=== PATIENT | male | born 1985 | race Caucasian/White ===

== ENCOUNTER 2024-09-20 19:01 | Emergency (ER) | payer BC, SELFPAY ==
[2024-09-20 19:08] VITALS: BP 125/70; PULSE 77; RESP 20; TEMP 37.3; O2SAT 100
--- NOTE | 2024-09-20 19:44 | ED_ITS ---
HPI - Dental/Oral General Chief complaint: Dental/Oral Stated complaint: tooth and jaw pain Time Seen by Provider: 09/20/24 19:44 Source: patient, RN notes reviewed and old records reviewed Mode of arrival: ambulatory Limitations: no limitations History of Present Illness HPI Narrative: 39 year old male preents to express care with complaints of dental pain to left upper most posterior molar which had been doing better after taking antibiotic and steroid from dentist he was prescribed 2 weeks ago. Patient reports that pain is radiating into his left ear and has been taking Ibuprofen every 6 hocus for his discomfort. 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 States pain started again 2 days ago and also noted some left jaw swelling today. No trismus noted. MD Complaint: tooth pain Location: Tooth # (15) Onset (ago): day(s) (2) Severity: moderate Treatment prior to arrival: oral analgesic and other (recently completed antibiotic and steroid) Related Data Allergies Allergy/AdvReac Type Severity Reaction Status Date / Time No Known Allergies Allergy Verified 09/20/24 19:07 Review of Systems Review of Systems: CONSTITUTIONAL: Denies fever, chills, or sweats. ENT: Denies rhinorrhea, congestion, sore throat, or otalgia. Reports dental pain #15 tooth with some radiation to left ear and jaw welling CARDIOVASCULAR: Denies chest pain, palpitations, or edema. RESPIRATORY: Denies cough or dyspnea. SKIN: Denies rash or itching. MUSCULOSKELETAL: Denies myalgia. NEUROLOGIC: Denies headache All systems reviewed & are unremarkable except as noted in HPI and below PMFSH Past Medical History Medical History (Updated 09/23/24 @ 10:01 by Madeleine Roth NP) Fracture of arm Dentalgia Social History Social History (Updated 09/23/24 @ 10:01 by Madeleine Roth NP) Smoking status: Never smoker Alcohol intake: current Alcohol use details: social Substance use type: does not use Living arrangements: with family Gender identity (if verbalized by the patient): Male Comments At time of signature, agree with nursing past medical, surgical, social and family history. There is no relevant family history pertinent to the presenting complaint Exam Narrative: GENERAL: Well-appearing, well-nourished, and in no acute distress. HEAD: Normocephalic, atraumatic. EYES: PERRLA and EOMI. ENT: Nares clear, no rhinorrhea or epistaxis. Mucous membranes moist. Redness around gum of left #15 tooth with no obvious caries, left jaw swelling and pain to eft ear, no trismus or Ludig angina noted NECK: Supple. no lymphadenopathy CHEST: Clear to auscultation. No respiratory distress.SAO2 100% on room air HEART: Regular rate and rhythm. No murmur heard. Normal peripheral pulses. SKIN: Warm, dry, no rash. NEURO: No focal deficits. Alert and oriented x3. Course Course Emergency Course: Patient is aware of diagnosis, understands and agrees to treatment plan. Anticipatory guidance given. Patient agrees to follow-up as directed and is aware of reasons to seek care at the emergency department. Portions of this record may have been created with voice recognition software Level of Care: Express Care Visit Vital Signs Vital signs: Vital Signs Temperature 37.3 C 09/20/24 19:08 Pulse Rate 77 09/20/24 19:08 Respiratory Rate 20 09/20/24 19:08 Blood Pressure 125/70 09/20/24 19:08 Pulse Oximetry 100 09/20/24 19:08 Oxygen Delivery Room Air 09/20/24 19:08 Temperature 37.3 C 09/20/24 19:08 Pulse Rate 77 09/20/24 19:08 Respiratory Rate 20 09/20/24 19:08 Blood Pressure 125/70 09/20/24 19:08 Pulse Oximetry 100 09/20/24 19:08 Oxygen Delivery Room Air 09/20/24 19:08 Reviewed MDM - Dental/Oral MDM Narrative Medical decision making narrative: Patients pain and complaint coupled with physical findings are consistent with dentalgia. There are no focal signs of space occupying lesions that are compromising to the airway; no dysphagia, odynophagia, dysphonia, or dyspnea. No uvular deviation or soft palate edema. Patient is non-toxic appearing. The floor of the mouth is soft with no signs of Jason's Angina; no induration below mandible, no neck pain.? Patient is without trismus or drooling and able to swallow secretions.? Patient is felt appropriate for discharge home with dental follow up. Differential Diagnosis Differential diagnosis: Likely toothache, dental abscess and other (facial swelling left) Medical Records Attestation: I reviewed the patient's medical records. Critical Care Time Critical Care Time Critical Care Time: No Discharge Plan Discharge Clinical Impression: Dentalgia, Left facial swelling Patient Disposition: Home, Self-Care Condition: Stable Instructions: Antibiotic Form, Toothache (ED) Additional Instructions: Avoid temperature extremes May apply heat or ice to the face Gentle brushing and flossing Antibiotic as directed Tylenol for lesser pain Use ibuprofen regularly Follow-up with the dentist as soon as possible--see the list provided Peridex mouth rinse Alternate Tylenol and ibuprofen every 4 hours for pain control If your symptoms persist, change or worsen significantly before you can contact your personal physician then please, without delay, go to the emergency department for further evaluation. Follow-up with PCP in 7-10 days or sooner if needed Patient Language: Venezuelan Prescriptions: New penicillin V potassium 500 mg tablet 500 mg PO Q12H 10 Days Qty: 20 0RF Follow-up/Referrals: PHYSICIAN NOT ON STAFF,NONSTAFF [Primary Care Provider] - Stand Alone Forms: Work/School Release IP Time of Disposition: 19:53 Quality Burton Coma Scale Eyes: Open Verbal: Oriented and Alert Motor: Follows Commands Babs Coma Total Score: 15
== END 2024-09-20 19:55 | disposition home or self-care (01) ==
PROVIDERS: Emergency Provider Registered Nurse
DX: K08.89 Other specified disorders of teeth and supporting structures (principal); R22.0 Localized swelling, mass and lump, head
CPT/HCPCS: 99203; G0463